=== PATIENT | female | born 1970 | race Asian ===

== ENCOUNTER → 2020-04-12 13:55 | Outpatient (REF) | payer BC, SELFPAY ==
--- NOTE | 2020-04-12 14:00 | CA_ITS ---
Transthoracic Echocardiogram Patient (Last, First, Middle): Armando Peck, Gender: Female Date of : 1970 Age: 49 Procedure Date: 04/12/2020 Procedure Type: Transthoracic Echocardiogram Location: OP Height: 149.86 cm Weight: 45.81 kg BSA: 1.38 m2 Heart Rate: bpm BP: 98 / 60 mmHg Night Supervisor: JUDAH Referring MD: Barry Metlon MD Fire Extinguisher Installer: Barry Melton MD Symptoms: R00.2 PALPITATIONS I34.1 MITRAL VALVE PROLAPSE, I34.0 NON RH Study Quality: Fair ECG Rhythm: Sinus Conclusions: - 1.Normal LV systolic and diastolic function 2. Thickening of mitral leaflet suggestive myxomatous changes with bowing without significant prolapse with mild mitral regurgitation 3. Normal RV systolic pressure 4. No pericardial effusion Findings Left Ventricle The visually estimated ejection fraction is between 60-65%. There is no evidence of regional wall motion abnormalities. Diastolic function is normal for age. Right Ventricle Normal right ventricular cavity size and systolic function. Atria Both atria are normal in size. There is no evidence of interatrial shunt. Aortic Valve Normal aortic valve structure and function. There is no aortic valve stenosis. There is no aortic valve regurgitation. Mitral Valve There is mild anterior and posterior mitral leaflet thickening. There is bowing of the anterior mitral leaflet without obvious prolapse and bowing of the posterior mitral leaflet without obvious prolapse. There is mild mitral valve regurgitation. Pulmonic Valve The pulmonic valve was not well visualized. Tricuspid Valve Likely normal tricuspid valve structure and function. There is trace tricuspid valve regurgitation. The right ventricular systolic pressure is normal. The right ventricular systolic pressure is 18 mmHg. There is no evidence of pulmonary hypertension. Great Vessels All visible segments of the aorta are normal in size. The pulmonary artery was not well visualized. Venous The inferior vena cava is normal in size and collapses greater than 50% with inspiration. Pericardium/Pleural There is no evidence of pericardial effusion. Prior Study Comparison No significant change compared to prior study dated: 04/15/2018. Measurements 2D Linear Measurements IVSd: 0.71 0.6-0.9/0.6-1.0 cm LVIDd: 3.20 3.9-5.3/4.2-5.9 cm LVIDd Index: 2.32 2.4-3.2/2.2-3.1 cm/m2 LVIDs: 2.31 2.0-3.6 cm LVPWd: 0.75 0.7-1.1 cm Ao Root: 2.90 2.1-3.5 cm LA Diam: 2.90 2.7-3.8/3.0-4.0 cm LAIDs Index: 2.10 1.5-2.3 cm/m2 LV Mass: 71.37 67-162/88-224 g LV Mass Index: 51.72 43-95/49-115 g/m2 LVOT Diam: 1.80 3.0+(-)1.3 cm 2D Systolic Function EF 4C: 57.20 >55% EF 2C: 64.50 >55% EF BiP: 61.30 >55% Mitral Valve MV Pk E: 1.03 MV PK A: 0.85 MV Decel Time: 272.00 E/A: 1.20 E'Lateral: 8.92 E'Medial: 7.51 E/E' Med: 13.70 E/E' Lat: 11.50 PHT: 80.00 MVA PHT: 2.75 Decel Dickinson: 3.77 Aortic Valve AoV Pk Tommy: 1.16 AoV Mn Tommy: 0.79 AoV VTI: 0.25 AoV Pk Grad: 5.00 Aov Mn Grad: 3.00 VENUS Cont.VTI: 1.59 LVOT LVOT Pk Tommy: 0.77 LVOT Mn Tommy: 0.45 LVOT VTI: 0.15 LVOT Pk Grad: 2.00 LVOT Mn Grad: 1.00 LVOT Diam: 1.80 LVOT Area: 2.54 Diastolic Function MV Pk E: 1.03 MV Pk A: 0.85 E/A: 1.20 E'Medial: 7.51 E/E' Med: 13.70 E' Laterial: 8.92 E/E' Lat: 11.50 Tricuspid Valve TR Pk Tommy: 1.93 TR Pk Grad: 15.00 RA Press: 3.00 RVSP: 18.00 Great Vessels Aorta Ao Root-2D: 2.90 2.0-3.7 cm Ao Asc: 3.00 2.1-3.4 cm Ao Arch: 2.20 Updated in Other Vendor System with Status of Final Barry Melton MD electronically signed on 04/13/2020 11:16:21 AM with status of Final
== END ==
LOC: HO.CARD 13:55
PROVIDERS: Visit Provider Internal Medicine Cardiovascular Disease
DX: R00.2 Palpitations (principal); I34.1 Nonrheumatic mitral (valve) prolapse; I34.0 Nonrheumatic mitral (valve) insufficiency
CPT/HCPCS: 93306

== ENCOUNTER → 2020-05-06 14:37 | Outpatient (BNVA) | payer BC, SELFPAY | PROVIDERS: Visit Provider Internal Medicine Cardiovascular Disease | DX: I34.0 Nonrheumatic mitral (valve) insufficiency (principal) | CPT/HCPCS: 93005 ==

== ENCOUNTER 2023-09-20 14:51 | Outpatient (AMB) | payer BC, SELFPAY ==
--- NOTE | 2023-09-20 15:01 | A.OFFVIS_ITS ---
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 Intake Note: New dx MVR c/o fatigue and more so with stairs Special Education Inclusion Teacher Required: No Allergies No Known Allergies Allergy (Unverified 11/16/19 17:22) Medication List - Last Reconciled 09/20/23 by Barry Melton MD aspirin (Adult Low Dose Aspirin) 81 mg PO DAILY atorvastatin 10 mg PO BEDTIME epinephrine 1 mg IM DAILY fluticasone furoate 100 mcg/actuation (Arnuity Ellipta) 1 inh inhalation DAILY fluticasone propionate 110 mcg/actuation 2 puffs inhalation BID methenamine hippurate 1 g PO BID multivitamin 1 tab PO DAILY HPI Comments Details: Thank you for referring [facility] cardiology consultation today for management of mitral valve prolapse. 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 Patient says that she has been doing well overall from cardiac perspective. She is in current high-intensity work job without any significant cardiac symptoms of exertional chest pain or shortness of breath. She has not had any recent echocardiogram. Last echocardiogram 3 years ago showed mild mitral valve prolapse with mild mitral regurgitation. She has been taking all her medications. Denies any prolonged palpitations. Symptoms SVT like palpitations have resolved. She complains of tiredness in both her legs when she is walking. She does not exercise on a regular basis. Denies any heart failure symptoms. [facility] Medical History (Updated 05/06/20 @ 14:56 by Barry Melton MD) Mitral regurgitation Surgical History (Updated 05/01/20 @ 11:06 by CHARISSA Marion) Hx of eye surgery Hx of endoscopy Family History (Updated 05/01/20 @ 11:06 by CHARISSA Marion) Father No problems noted. Mother No problems noted. Review of Systems Const Denies chills, Denies daytime sleepiness, Denies fatigue, Denies fever(s), Denies frequent falls, Denies poor appetite, Denies snoring, Denies stops breathing during sleep, Denies weakness, Denies weight gain and Denies weight loss Eyes Denies loss of vision ENT Denies dizziness and Denies hearing loss Card Denies chest pain, Denies claudication, Denies leg edema, Denies lighth eadedness, Denies palpitations, Denies dyspnea, Denies dyspnea on exertion and Denies orthopnea Resp Denies cough, Denies excessive phlegm production, Denies dyspnea, Denies dyspnea on exertion, Denies snoring and Denies wheezing GI Denies abdominal pain, Denies hematochezia, Denies change in bowel habits, Denies nausea and Denies vomiting Denies urinary frequency and Denies dysuria Musc Denies arthralgias, Denies muscle weakness, Denies numbness and Denies other (frequent falls) Skin/Breast Denies nail changes and Denies rash Neuro Denies Abnormal speech present, Denies dizziness, Denies frequent falls, Denies loss of vision, Denies memory loss, Denies numbness and Denies weakness Psych Denies depression and Denies memory loss Endo Denies fatigue and Denies palpitations Dashawn/Lymph Reports easy bruising and Reports other (anemia) Aller/Immun Denies wheezing Physical Exam Vital Signs: Last Vital Signs Pulse 67 09/20/23 15:02 BP 110/72 09/20/23 15:02 BMI result Body Mass Index 21.8 Const General: cooperative, comfortable, no acute distress, alert, awake and Physically active Nutritional Appearance: thin Orientation/consciousness: patient oriented x3 Limitations: no limitations HEENT Head: Yes normocephalic and Yes atraumatic Neck Neck: Yes trachea midline, Yes supple and Yes no JVD Resp Effort & Inspection: normal respiratory effort Auscultation: clear to auscultation bilaterally Cardio Jugular venous distension: no JVD Palpation: normal PMI Rate: regular rate Rhythm: regular rhythm Heart sounds: S1 normal heart sound present, S2 normal heart sound present, Clicking heart sound present (Systolic), no gallops, no murmurs and no rubs GI Auscultation: normal bowel sounds Skin General skin exam: no rashes or lesions noted Neuro General: patient oriented x3 and no focal motor deficits Speech: No Abnormal speech present Extrem General: Yes no clubbing, cyanosis or edema Psych Appearance: grossly normal Office Procedures EKG [id number], Complete Assessment & Plan Assessment & Plan (1) Mitral regurgitation: Code(s): I34.0 - Nonrheumatic mitral (valve) insufficiency Category: Medical Plan: Patient with prior mitral valve prolapse with mild mitral regurgitation by echocardiogram. Clinically currently not having any symptoms. Currently in a active job with labor intensive activity. Will follow-up echocardiogram near future to assess for mitral regurgitation. If remains mild with mild mitral regurgitation echo was every 3 years should be pursued. Continue low-dose aspirin therapy. Encouraged to increase and participate in regular physical activity. Continue treatment of her lipids with target goal LDL less than 100 mg/dL. No indication for SBE prophylaxis. Will follow up in the clinic in 1 year's time, sooner p.r.n.. Thank you for allowing me to partake in her care Coding Level of Care Code New Pt Level 4 (99889) Diagnoses Mitral regurgitation I34.0 CPT Codes EKG - CPT: 12770-[id number], Complete ([id number])
[2023-09-20 15:02] VITALS: BP 110/72; PULSE 67; BMI 21.8
== END 2023-09-20 15:29 | disposition home or self-care (01) ==
PROVIDERS: PCP Internal Medicine; Visit Provider Internal Medicine Cardiovascular Disease
DX: I34.0 Nonrheumatic mitral (valve) insufficiency (principal)
CPT/HCPCS: 93010; 99204

== ENCOUNTER → 2023-09-20 14:51 | Outpatient (BNVA) | payer BC, SELFPAY | PROVIDERS: PCP Internal Medicine; Visit Provider Internal Medicine Cardiovascular Disease | DX: I34.0 Nonrheumatic mitral (valve) insufficiency (principal); Z79.82 Long term (current) use of aspirin | CPT/HCPCS: 93005 ==